=== PATIENT | male | born 2000 | race Caucasian/White ===

== ENCOUNTER 2020-11-29 23:44 | Emergency (ER) | payer BC ==
[~2020-11-29] VITALS: Ht 188 cm; Wt 99.8 kg
[2020-11-29 23:44] VITALS: BP_SYST 136
--- NOTE | 2020-11-29 23:44 | NUR ---
Patient to ER bed 03 to gown for evaluation. Side rails up. Report given to CINDY Amaro
--- NOTE | 2020-11-29 23:50 | NUR ---
PATIENT AOX4, AMBULATORY, FROM HOME COMPLAINING OF NUMBNESS TO RIGHT 4TH AND 5TH FINGER RADIATING TO HAND X 10 DAYS WORSENING. PATIENT DENIES ANY TRAUMA TO HAND. 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 PAIN 4/10. NO OTHER COMPLAINTS/INJURIES PER PATIENT OR NOTED.
--- NOTE | 2020-11-30 00:11 | NUR ---
ER Dr. Marroquin at bedside examining patient.
--- NOTE | 2020-11-30 00:23 | NUR ---
Patient given written and verbal discharge instructions and verbalizes understanding. ER MD discussed with patient the results and treatment provided. Patient in stable condition. ID arm band removed. NO RX Given. Patient educated on pain management and to follow up with PMD IN 3 DAYS. Pain Scale 0/10 Opportunity for questions provided and answered.
[2020-11-30 00:25] VITALS: BP_SYST 136
== END 2020-11-30 00:25 | disposition home or self-care (01) ==
LOC: SED 23:44
DX: G56.21 Lesion of ulnar nerve, right upper limb (principal)
CPT/HCPCS: 99282

== ENCOUNTER 2023-05-10 00:02 | Emergency (ER) | payer BC ==
[~2023-05-10] VITALS: Ht 188 cm; Wt 104.3 kg
[2023-05-10 00:26] VITALS: BP_SYST 135; PULSE 98; RESP 16; TEMP 97.9; O2SAT 99
[2023-05-10] MEDS ORDERED: AUG875 PO (00:55)
[2023-05-10] MEDS ORDERED: FLUT16SP16 NS (00:55)
[2023-05-10 01:00] VITALS: BP_SYST 135; PULSE 98; RESP 16; TEMP 97.9; O2SAT 99
== END 2023-05-10 01:00 | disposition home or self-care (01) ==
LOC: SED 00:02
DX: H68.012 Acute Eustachian salpingitis, left ear (principal); H65.192 Other acute nonsuppurative otitis media, left ear; Z79.899 Other long term (current) drug therapy
CPT/HCPCS: 99283